=== PATIENT | female | born 1995 | race Caucasian/White ===

== ENCOUNTER 2023-10-27 12:24 | Emergency (ER) | payer OTHER, SELFPAY ==
[2023-10-27 12:30] VITALS: BP 103/82; PULSE 97; RESP 16; TEMP 36.2; O2SAT 100
--- NOTE | 2023-10-27 13:06 | ED.DENTAL ---
HPI - Dental/Oral General Chief complaint: Dental/Oral Stated complaint: tooth pain Time Seen by Provider: 10/27/23 12:44 Source: patient, RN notes reviewed and old records reviewed Mode of arrival: ambulatory Limitations: no limitations History of Present Illness HPI Narrative: 27 year old female who presents to [facility] care with complaints of dental pain to number # 21 and 22 for the past 2 days. Patient reports that she broke a tooth on the left lower molar area on candy she was eating with some redness and swelling of her gums around #21 and 20 teeth. Patient has numerous missing teeth and caries noted of teeth,Patient reports that she has taken Tylenol for her discomfort. Patient reports that she has gone to the [facility] dental clinic in the past for dental problems. MD Complaint: tooth pain Location: Tooth # (21 and #20) Onset (ago): day(s) (2) Severity: moderate Treatment prior to arrival: oral analgesic (Tylenol) Related Data Allergies Allergy/AdvReac Type Severity Reaction Status Date / Time No Known Allergies Allergy Verified 10/27/23 12:33 Review of Systems Review of Systems: CONSTITUTIONAL: Denies fever, chills, or sweats. ENT: Denies rhinorrhea, congestion, sore throat, or otalgia. Reports dental pain to #20 and #21 teeth with # 21 broken off and noted caries to #20 CARDIOVASCULAR: Denies chest pain, palpitations, or edema. RESPIRATORY: Denies cough or dyspnea. SKIN: Denies rash or itching. MUSCULOSKELETAL: Denies myalgia. NEUROLOGIC: Denies headache All systems reviewed & are unremarkable except as noted in HPI and below PMFSH Past Medical History Medical History (Updated 10/29/23 @ 09:06 by Mackenzie Landin NP) History of dental problems Social History Social History (Updated 10/29/23 @ 09:07 by Mackenzie Landin NP) Smoking status: Smoker, status unknown Alcohol intake: unknown Substance use: unknown Gender identity (if verbalized by the patient): Female Comments At time of signature, agree with nursing past medical, surgical, social and family history. There is no relevant family history pertinent to the presenting complaint Exam Narrative: GENERAL: Well-appearing, well-nourished, and in no acute distress. HEAD: Normocephalic, atraumatic. EYES: PERRLA and EOMI. ENT: Nares clear, no rhinorrhea or epistaxis. Mucous membranes moist. Missing teeth, broken teeth, caries, broken #21 tooth with #20 with caries, redness of gums around teeth and pain, no trismus or any Sergio angina noted NECK: Supple no lymphadenopathy CHEST: Clear to auscultation. No respiratory distress.SAO2 100% on room air HEART: Regular rate and rhythm. No murmur heard. Normal peripheral pulses. SKIN: Warm, dry, no rash. NEURO: No focal deficits. Alert and oriented x3. Course Course Emergency Course: Patient is aware of diagnosis, understands and agrees to treatment plan. Anticipatory guidance given. Patient agrees to follow-up as directed and is aware of reasons to seek care at the emergency department. Portions of this record may have been created with voice recognition software Level of Care: Express Care Visit Vital Signs Vital signs: Vital Signs Temperature 36.2 C L 10/27/23 12:30 Pulse Rate 97 10/27/23 12:30 Respiratory Rate 16 10/27/23 12:30 Blood Pressure 103/82 10/27/23 12:30 Pulse Oximetry 100 10/27/23 12:30 Oxygen Delivery Room Air 10/27/23 12:30 Temperature 36.2 C L 10/27/23 12:30 Pulse Rate 97 10/27/23 12:30 Respiratory Rate 16 10/27/23 12:30 Blood Pressure 103/82 10/27/23 12:30 Pulse Oximetry 100 10/27/23 12:30 Oxygen Delivery Room Air 10/27/23 12:30 Reviewed MDM - Dental/Oral MDM Narrative Medical decision making narrative: Patients pain and complaint coupled with physical findings are consistent with dentalgia. There are no focal signs of space occupying lesions that are compromising to the airway; no dysphagia, odynophagia, dysphonia, or dysp
== END 2023-10-27 13:20 | disposition home or self-care (01) ==
PROVIDERS: Emergency Provider Registered Nurse
DX: K04.7 Periapical abscess without sinus (principal); S02.5XXA Fracture of tooth (traumatic), initial encounter for closed fracture; X58.XXXA Exposure to other specified factors, initial encounter
CPT/HCPCS: 99203; G0463

== ENCOUNTER 2024-10-16 14:04 | Emergency (ER) | payer OTHER, SELFPAY ==
[2024-10-16 14:06] VITALS: BP 129/77; PULSE 91; RESP 20; TEMP 36.5; O2SAT 100
--- NOTE | 2024-10-16 14:13 | ED.DENTAL ---
HPI - Dental/Oral General Chief complaint: Dental/Oral Stated complaint: tooth pain and swelling Time Seen by Provider: 10/16/24 14:09 Mode of arrival: ambulatory Limitations: no limitations History of Present Illness HPI Narrative: 28-year-old female presents concern for left lower dental pain. Reports last night she started having pain and swelling. Reports in the past she has a tooth broken in that area. She reports she has had problems with it before. She denies fever. She has been taking ibuprofen. 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 MD Complaint: tooth pain Related Data Allergies Allergy/AdvReac Type Severity Reaction Status Date / Time No Known Allergies Allergy Verified 10/16/24 14:11 Review of Systems Review of Systems: CONSTITUTIONAL: Denies malaise, chills, sweats, or fever. EYES: Denies visual changes ENT: Denies rhinorrhea, congestion, sinus pain, otalgia or sore throat. Reports left lower dental pain and jaw swelling CARDIOVASCULAR: Denies chest pain, palpitations RESPIRATORY: Denies cough or dyspnea. SKIN: Denies rash or itching. MUSCULOSKELETAL: Denies myalgia. NEUROLOGIC: Denies numbness, weakness, or headache. All systems reviewed & are unremarkable except as noted in HPI and below PMFSH Past Medical History Medical History (Updated 10/16/24 @ 14:18 by Cori Mendez NP) History of dental problems Social History Social History (Updated 10/29/23 @ 09:07 by Mackenzie Landin NP) Smoking status: Smoker, status unknown Alcohol intake: unknown Substance use: unknown Gender identity (if verbalized by the patient): Female Comments At time of signature, agree with nursing past medical, surgical, social and family history. There is no relevant family history pertinent to the presenting complaint Exam Narrative: GENERAL: Well-appearing, well-nourished, and in no acute distress. HEAD: Normocephalic, atraumatic. EYES: PERRLA, sclera clear ENT: Nares clear, turbinates pink, no rhinorrhea or epistaxis. Mucous membranes moist. Broken teeth, caries, left lower jaw swelling noted NECK: Supple. No lymphadenopathy. CHEST: No respiratory distress. Speaks in full sentences. HEART: Regular rate and rhythm. SKIN: Warm, dry, no visible rash. NEURO: Alert and oriented x3. PSYCH: Normal mood and affect Course Course Emergency Course: Patient is aware of diagnosis, understands and agrees to treatment plan. Anticipatory guidance given. Patient agrees to follow-up as directed and is aware of reasons to seek care at the emergency department. Portions of this record may have been created with voice recognition software Level of Care: [facility] Visit Vital Signs Vital signs: Vital Signs Temperature 97.7 F 10/16/24 14:06 Pulse Rate 91 10/16/24 14:06 Respiratory Rate 20 10/16/24 14:06 Blood Pressure 129/77 10/16/24 14:06 Pulse Oximetry 100 10/16/24 14:06 Oxygen Delivery Room Air 10/16/24 14:06 Temperature 97.7 F 10/16/24 14:06 Pulse Rate 91 10/16/24 14:06 Respiratory Rate 20 10/16/24 14:06 Blood Pressure 129/77 10/16/24 14:06 Pulse Oximetry 100 10/16/24 14:06 Oxygen Delivery Room Air 10/16/24 14:06 Reviewed. MDM - Dental/Oral MDM Narrative Medical decision making narrative: I evaluated this in the [facility]. History is obtained from patient who is an independent historian and physical exam was performed.? Available medical records were reviewed. ? Exam findings and relevant testing show no acute concerns or changes; patient is non-toxic appearing and is in no distress. Patients pain and complaint coupled with physical findings are consistant with dentalgia. There are no focal signs of space occupying lesions that are compromising to the airway; no dysphagia, odynophagia, dysphonia, or dyspnea. No uvular deviation or soft palate edema. Patient is non-toxic appearing. The floor of the mouth is soft with no signs of Sergio's Angina; no induration below mandible, no neck pain. Patient is without trismus or drooling and able to swallow secretions. Patient is felt appropriate for discharge home with dental follow up. ? Differential diagnosis and treatment plan were discussed with the patient. Patient agrees with discussion and after shared medical decision making agrees with plan of care. All questions were answered to the patient's satisfaction. Patient is appropriate for outpatient treatment and follow-up. Differential Diagnosis Differential diagnosis: Likely gingival abscess, dental caries, toothache, dental abscess, fracture of tooth and aphthous ulcer Critical Care Time Critical Care Time Critical Care Time: No Discharge Plan Discharge Clinical Impression: Dental abscess Patient Disposition: Home Condition: Stable Instructions: Antibiotic Form, Dental Abscess (ED) Additional Instructions: Take antibiotic as directed Avoid temperature extremes May apply heat or ice to the face Gentle brushing and flossing Take 2 extra strength Tylenol, 4 ibuprofen, 80 mg of caffeine at same time. You can do this every 6 hours. Do not do this for more than 2 - 3 days. You can substitute 25 mg Benadryl at nighttime for caffeine to help you sleep. Do this for no more than 3 days. Follow-up with the dentist as soon as possible - see the list provided Patient Language: Bulgarian Prescriptions: New amoxicillin-pot clavulanate 875-125 mg tablet 1 tablet PO Q12H 10 Days Qty: 20 0RF chlorhexidine gluconate 0.12 % mouthwash 15 ml buccal BID Qty: 120 0RF Follow-up/Referrals: PHYSICIAN,CAN RUNNER [Primary Care Provider] - Time of Disposition: 14:19
--- OUTSIDE RECORDS SUMMARY | 2024-10-16 14:17 | XMS_ITS | Referral Summary ---
Author Organization [facility] Address [address] [place] [address] Care Team Providers Care Natural Resource Manager Name Role Phone No, Physician Primary Care Provider [phone] Allergies Active Allergy Reactions Criticality Noted Date Comments Cinnamon Swelling Medium 11/15/2017 Medications ibuprofen (ADVIL,MOTRIN) 600 mg tablet Take 1 tablet (600 mg total) by mouth 4 (four) times a day as needed for pain Take with food. 30 tablet 1 Active ibuprofen (ADVIL,MOTRIN) 600 mg tablet Take 1 tablet (600 mg total) by mouth every 6 (six) hours as needed for pain 20 tablet 2 Active chlorhexidine (PERIDEX) 0.12 % solution Apply 10 mL to the mouth or throat 4 (four) times a day Swish around in mouth and hold in mouth for 5-10 minutes then spit out. Collaborating physician Dheeraj Cruz MD 240 mL 1 2 Active ibuprofen (ADVIL,MOTRIN) 600 mg tablet Take 1 tablet (600 mg total) by mouth every 8 (eight) hours as needed for pain P.r.n. pain and/or swelling. Collaborating physician Dheeraj Cruz MD 20 tablet 2 Active phenylephrine (SAIDA-SYNEPHRIN E) 0.25 % nasal sprayIndicatio ns:Nasal sinus congestion Administer 1 spray into each nostril every 4 (four) hours as needed for congestion Collaborating physician Dheeraj Cruz MD 15 mL 3 Active naproxen (NAPROSYN) 375 mg tablet Take 1 tablet (375 mg total) by mouth 2 (two) times a day with meals Collaborating physician Dheeraj Cruz MD 20 tablet 3 Active Active Problems Problem Noted Date Diagnosed Date Acute right otitis media 09/17/2022 Nasal sinus congestion 09/17/2022 Gingivitis 10/27/2021 Dentalgia 10/27/2021 Dental caries 10/27/2021 Glucosuria with normal serum glucose 10/23/2019 Benzodiazepine overdose 10/23/2019 depression 07/01/2017 Scabies 06/24/2017 Hypoglycemia Social History Tobacco Use Types Packs/Day Years Used Date Smoking Tobacco: Every Day Cigarettes Smokeless Tobacco: Never Alcohol Use Standard Drinks/Week Comments Yes 0 (1 standard drink = 0.6 oz pur e alcohol) occasionally Personal Safety Answer Date Recorded Getting School Help Needed Not on file 09/24 Comments No Sex and Gender Information Value Date Recorded Sex Assigned at Not on file 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 Gender Identity Not on file Sexual Orientation Not on file Last Filed Vital Signs Vital Sign Reading Time Taken Comments Blood Pressure 130/69 09/17/2022 5:10 PM CDT Pulse 89 09/17/2022 5:10 PM CDT Temperature 36.8 C (98.2 F) 09/17/2022 5:10 PM CDT Respiratory Rate 20 09/17/2022 5:10 PM CDT Oxygen Saturation 100% 09/17/2022 5:10 PM CDT Inhaled Oxygen Concentration - - Weight 63.5 kg (140 lb) 09/17/2022 3:10 PM CDT Height 162.6 cm (5' 4) 08/24/2022 4:44 PM CDT Body Mass Index 24.03 08/24/2022 4:44 PM CDT Plan of Treatment Not on file Insurance MEDICAID [facility] MEDICAID [facility] Advance Directives For more information, please contact: [phone] * Full Code (Latest Code Status on File) Date Activated Date Inactivated Comments 10/22/2019 5:45 AM 10/23/2019 9:20 PM Care Teams Natural Resource Manager Relationship Specialty Start Date End Date No, Physician PCP - General 08/20/16
--- OUTSIDE RECORDS SUMMARY | 2024-10-16 14:17 | XMS_ITS | Clinical Summary ---
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 Gender Identity Not on file Sexual Orientation Not on file Obstetrics History Last Filed Vital Signs Vital Sign Reading [...] 08/24/2022 4:44 PM CDT Plan of Treatment Health Maintenance Due Date Last Done Comments Cervical Cancer Screening 1994 Depression Screening 1994 Hepatitis C Screening 1994 Varicella Vaccines (1 of 2 - 13+ 2-dose series) 12/12/2007 HPV Vaccines (2 - 3-dose series) 01/27/2011 12/31/19 11 Regular Well Visit/Exam 18-64 2012 Pneumococcal vaccine <65 (1 of 2 - PCV) 2013 DTaP/Tdap/Td Vaccine (7 - Td or Tdap) 04/30/2024 04/30/2014, 12/30/2010, 10/22/2006, Additional history exists Influenza Vaccine (#1) 2024 Hepatitis B Screening Completed 11/13/1998 , 05/12/1995, 1994 Insurance [facility] MEDICAID [facility] [place] [address] Advance Directives For more information, please contact: [phone] * Full Code (Latest Code Status on File) Date Activated Date Inactivated Comments 10/22/2019 5:45 AM 10/23/2019 9:20 PM Care Teams Mold Sheet Cleaner Relationship Specialty Start Date End Date No, Physician PCP - General 08/20/16
--- OUTSIDE RECORDS SUMMARY | 2024-10-16 14:17 | XMS_ITS | Clinical Summary ---
Author Organization [facility] Address [address] [place] [address] Phone Care Team Providers Care Donor Relations Coordinator Name Role Phone Provider, None Primary Care Provider Unavailabl e Allergies Active Allergy Reactions Criticality Noted Date Comments Cinnamon Swelling 02/18/2023 Medications * This document contains information received from the source organization and may not represent a complete record from that organization. metoclopramide (REGLAN) 10 MG Tablet Take 1 Tab by mouth 4 times daily as needed for Nausea - 1st line. 10 Tab 0 Active polyethylene glycol (MiraLax) 17 GM/SCOOP Powder Take 17 g by mouth daily. 17 g = 1 scoop. Dissolve in 4 -8 oz of water or other liquid. 1 Bottle 0 Active folic acid (FOLVITE) 1 MG Tablet Take 1 Tablet by mouth daily. 30 Tablet 3 Active hydrOXYzine (ATARAX) 50 MG Tablet Take 1 Tablet by mouth every 6 hours as needed for Anxiety (For mild anxiety - patient reported scale of 1-4.). 90 Tablet 3 Active loperamide (IMODIUM) 2 MG Capsule Take 1 Capsule by mouth every 8 hours as needed for Diarrhea (give for continued diarrhea). 30 Capsule 3 Active nicotine (NICODERM CQ) 21 MG/24HR PATCH 24 HR 1 Patch by Transdermal route daily as needed for Other (smoking). 30 Patch 3 Active ondansetron (ZOFRAN-ODT) 4 MG TABLET DISPERSIBLE Take 1 Tablet by mouth every 6 hours as needed for Nausea - 1st line. 10 Tablet 3 Active senna 8.6 MG Tablet Take 2 Tablets by mouth nightly as needed for Constipation - 1st line. 30 Tablet 3 Active Thiamine Mononitrate (THIAMINE) 100 MG Tablet Take 1 Tablet by mouth daily. 30 Tablet 3 Active naloxone HCl (Narcan) 4 MG/0.1ML Liquid 1 Eagar by Nasal route as needed for Opioid Reversal (opioid overdose). administer for symptoms of overdose (severe sleepiness, breathing problems, not responsive). Call 911. May use additional dose to repeat 1 spray intranasally in 2-3 minutes if needed. 2 Each 3 Active buprenorphine 2 MG SL TabletIndicatio ns:Opiate withdrawal (HCC) 1 Tablet by Sublingual route every 12 hours as needed for Withdrawal for up to 5 doses. 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 Tobacco dependence 02/18/2023 Family History Medical History Relation Name Comments No Known Problems Father No Known Problems Mother Relation Name Status Comments Father Mother Social History Tobacco Use Types Packs/Day Years Used Date Smoking Tobacco: Every Day Cigarettes 0.5 10 Smokeless Tobacco: Never Tobacco Cessation:Ready to Q uit: No Alcohol Use Standard Drinks/Week Comments No 0 (1 standard drink = 0.6 oz pur e alcohol) Sexually Active Control Partners Comments Yes Male Comments No Sex and Gender Information Value Date Recorded Sex Assigned at Not on file Legal Sex Female 12:07 AM CDT Gender Identity Not on file Sexual Orientation Not on file Last Filed Vital Signs Vital Sign Reading Time Taken Comments Blood Pressure 107/52 02/21/2023 8:00 AM UNSCRAMBLER Pulse 64 02/21/2023 8:00 AM UNSCRAMBLER Temperature 36.2 C (97.2 F) 02/21/2023 8:00 AM UNSCRAMBLER Respiratory Rate 18 02/21/2023 8:00 AM UNSCRAMBLER Oxygen Saturation 97% 02/21/2023 8:00 AM UNSCRAMBLER Inhaled Oxygen Concentration - - Weight 63.5 kg (140 lb) 02/18/2023 3:56 PM UNSCRAMBLER Height 162.6 cm (5' 4) 02/18/2023 3:58 PM UNSCRAMBLER Body Mass Index 24.03 02/18/2023 3:56 PM UNSCRAMBLER Plan of Treatment Health Maintenance Due Date Last Done Comments Hepatitis C Virus (HCV) Screening 1994 Human Papillomavirus (HPV) Immunization (2 - 3-dose series) 01/27/2011 12/30/2010 Pneumococcal Immunization Combined (1 of 2 - PCV) 2013 Pap Smear 12/12/2015 SARS-COV-2 Immunization ( season) 2023 Influenza Immunization (#1) 2024 Respiratory Syncytial Virus (RSV) Immunization (Adult) (1 - 1-dose 75+ series) 2069 Hepatitis B Immunization Completed 999, 05/12/1995, 1994 Meningococcal Immunization (ACWY) Completed 12/30/2010, 10/22/2006 DTaP/Tdap/Td Immunization Discontinued 2014, 12/30/2010, 10/22/2006, Additional history exists TdaP Immunization Completed 04/30/2014, 12/30/2010 Rotavirus Immunization Aged Out No lo nger eligible based on patient's age to complete this topic Insurance MEDICAID [facility] Advance Directives * Full Code (Latest Code Status on File) Date Activated Date Inactivated Comments 02/18/2023 3:47 PM 02/21/2023 5:09 PM CPR-Full Tr eatment: FULL ARREST: Attempt Resuscitation/CPR wit intubation and mechanical ventilation. PRE-ARREST: Use entire range of life support measures to stabilize the patient. * Full Code Date Activated Date Inactivated Comments 11/24/2016 6:45 AM 11/25/2016 11:00 PM CPR-Full Tr eatment: FULL ARREST: Attempt Resuscitation/CPR wit intubation and mechanical ventilation. PRE-ARREST: Use entire range of life support measures to stabilize the patient. Care Teams Donor Relations Coordinator Relationship Specialty Start Date End Date Provider, None [place] PCP - General 07/13/16
== END 2024-10-16 14:22 | disposition home or self-care (01) ==
PROVIDERS: Emergency Provider Nurse Practitioner
DX: K04.7 Periapical abscess without sinus (principal)
CPT/HCPCS: 99213; G0463

== ENCOUNTER 2025-02-20 19:00 | Emergency (ER) | payer OTHER, SELFPAY ==
[2025-02-20 19:08] VITALS: BP 115/71; PULSE 108; RESP 20; TEMP 36.7; O2SAT 100
--- NOTE | 2025-02-20 19:16 | ED.FEMALEGU ---
HPI - Female Genitourinary General Chief complaint: Urogenital-Female Stated complaint: Poss UTI Time Seen by Provider: 02/20/25 19:36 Source: patient and RN notes reviewed Mode of arrival: ambulatory Limitations: no limitations History of Present Illness HPI Narrative: 29-year-old female presents with concern for foul vaginal odor for 2 weeks. She denies discharge, frequency, urgency, abdominal pain, fever, nausea vomiting, back pain. She reports someone in her town has chlamydia and she is worried she was exposed. MD elicited complaint: possible STD Related Data Allergies Allergy/AdvReac Type Severity Reaction Status Date / Time No Known Allergies Allergy Verified 02/20/25 19:18 Review of Systems Review of Systems: CONSTITUTIONAL: Denies malaise, chills, sweats, or fever. CARDIOVASCULAR: Denies chest pain, palpitations, or edema. RESPIRATORY: Denies cough or dyspnea. GASTROINTESTINAL: Denies abdominal pain, nausea, vomiting, diarrhea GENITOURINARY: Reports foul vaginal odor. Denies dysuria, frequency, urgency, suprapubic pressure. Denies flank pain or hematuria. SKIN: Denies rash or itching. MUSCULOSKELETAL: Denies back pain or myalgia. All systems reviewed & are unremarkable except as noted in HPI and below PMFSH Past Medical History Medical History (Updated 02/20/25 @ 19:43 by Cori Mendez APRN) History of dental problems Social History Social History (Updated 10/29/23 @ 09:07 by Mackenzie Landin APRN) Smoking status: Smoker, status unknown Alcohol intake: unknown Substance use: unknown Gender identity (if verbalized by the patient): Female Comments At time of signature, agree with nursing past medical, surgical, social and family history. There is no relevant family history pertinent to the presenting complaint Exam Narrative: GENERAL: Well-appearing, well-nourished, and in no acute distress. HEAD: Normocephalic. EYES: PERRLA, conjunctivae clear. NECK: Supple. No lymphadenopathy CHEST: Clear to auscultation. No respiratory distress. HEART: Regular rate and rhythm. ABDOMEN: Soft, nontender upon palpation, nondistended, no palpable or pulsatile masses, no guarding. No CVA tenderness SKIN: Warm, dry, no rash. NEURO: Alert and oriented x3. PSYCH: Normal mood and affect Course Course Emergency Course: Patient is aware of diagnosis, understands and agrees to treatment plan. Anticipatory guidance given. Patient agrees to follow-up as directed and is aware of reasons to seek care at the emergency department. Portions of this record may have been created with voice recognition software Level of Care: [facility] Visit MDM Differential Diagnosis Differential Diagnosis: I evaluated this patient in the [facility]. History is obtained from patient who is an independent historian and physical exam was performed.? Available medical records were reviewed. ? Exam findings and relevant testing show no acute concerns or changes; patient is non-toxic appearing and is in no distress. ? Exam findings and UA show no acute concerns or changes; patient is non-toxic appearing and is in no distress. No CMT, adnexal tenderness, or evidence of pelvic etiology. Differential diagnosis include pyelonephritis, STI, cystitis, urinary tract infection, acute abdomen, gastroenteritis, yeast infection Differential diagnosis and treatment plan were discussed with the patient. Patient agrees with discussion and after shared medical decision making agrees with plan of care. All questions were answered to the patient's satisfaction. Patient is appropriate for outpatient treatment and follow-up. Discharge Plan Discharge Clinical Impression: Screen for STD (sexually transmitted disease) Patient Disposition: Home Condition: Stable Instructions: Antibiotic Form, Sexually Transmitted Diseases (ED) Additional Instructions: You have been tested for potential bacterial vaginosis gonorrhea, chlamydia, and trichomoniasis today. You have received antibiotics to treat gonorrhea today, a prescription has been called into your pharmacy to treat chlamydia, bacterial vaginosis, and trichomoniasis. You will receive a phone call in 2-3 days with the results of today's testing. It is very important that you avoid unprotected intercourse during treatment and for 7 days AFTER TREATMENT is complete and until your partner(s) have been treated. Please encourage your partner(s) to seek testing and treatment. When you have been exposed to sexually transmitted infections, it is important that you seek comprehensive testing, since we do not provide testing for all sexually transmitted infections. Some infections can have no symptoms, but cause serious health problems. Contact your health care provider or report to the emergency department if: You have genital swelling or pain, or unusual bleeding. You have joint pain, rash, swollen lymph nodes or night sweats. You are severe abdominal pain. You have a fever. Symptoms do not go away or they get worse even after treatment. You have bleeding or pain during sex. Patient Language: Syrian Prescriptions: New metronidazole 500 mg tablet 500 mg PO BID 7 Days Qty: 14 0RF doxycycline monohydrate 100 mg tablet 100 mg PO BID 7 Days Qty: 14 0RF Follow-up/Referrals: PHYSICIAN,ANIMAL CARE TAKER [Primary Care Provider, Internal Medicine] Time of Disposition: 19:45
--- OUTSIDE RECORDS SUMMARY | 2025-02-20 19:17 | XMS_ITS | Clinical Summary ---
Author Organization [facility] Address [address] [place] [address] Phone Care Team Providers Care Chemistry Lab Instructor Name Role Phone Provider, None Primary Care [...] naloxone HCl (Narcan) 4 MG/0.1ML Liquid 1 [place] by Nasal route as needed for Opioid Reversal (opioid overdose). administer for symptoms of overdose (severe sleepiness, breathing problems, not responsive). Call 911. May use additional dose to repeat 1 spray intranasally in 2-3 minutes if needed. 2 Each 3 Active buprenorphine 2 MG SL TabletIndicatio ns:Opiate withdrawal 1 Tablet by Sublingual route every 12 [...] Comments Blood Pressure 107/52 02/21/2023 8:00 AM OUTBOUND SALES ADVISOR Pulse 64 02/21/2023 8:00 AM OUTBOUND SALES ADVISOR Temperature 36.2 C (97.2 F) 02/21/2023 8:00 AM OUTBOUND SALES ADVISOR Respiratory Rate 18 02/21/2023 8:00 AM OUTBOUND SALES ADVISOR Oxygen Saturation 97% 02/21/2023 8:00 AM OUTBOUND SALES ADVISOR Inhaled Oxygen Concentration - - Weight 63.5 kg (140 lb) 02/18/2023 3:56 PM OUTBOUND SALES ADVISOR Height 162.6 cm (5' 4) 02/18/2023 3:58 PM OUTBOUND SALES ADVISOR Body Mass Index 24.03 02/18/2023 3:56 PM OUTBOUND SALES ADVISOR Plan of Treatment Health Maintenance Due Date Last Done Comments Hepatitis C Virus (HCV) Screening 1994 Varicella Immunization (1 of 2 - 13+ 2-dose series) 12/12/2007 Human Papillomavirus (HPV) Immunization (2 - 3-dose series) 01/27/2011 12/30/2010 Pneumococcal Immunization Combined (1 of 2 - PCV) 2013 Pap Smear 12/12/2015 Influenza Immunization (#1) 2024 SARS-COV-2 Immunization (1 - season) 2024 Cervical Cancer Screening (CCS) 2024 HPV/Cotest 2024 Respiratory Syncytial Virus (RSV) Immunization (Adult) [...] measures to stabilize the patient. Care Teams Chemistry Lab Instructor Relationship Specialty Start Date End Date Provider, None [place] PCP - General 07/13/16
--- OUTSIDE RECORDS SUMMARY | 2025-02-20 19:17 | XMS_ITS | Clinical Summary ---
Author Organization [facility] Address [address] [place] [address] Care Team Providers Care Organ Tuner Electronic Name Role Phone No, Physician Primary Care Provider [phone] Allergies Active Allergy Reactions Criticality Noted Date Comments Cinnamon Swelling Medium 11/15/2017 Medications ibuprofen (ADVIL,MOTRIN) 600 mg tablet Take 1 tablet (600 mg total) by mouth 4 (four) times a day as needed for pain Take with food. 30 tablet 05/27/19 21 Active ibuprofen (ADVIL,MOTRIN) 600 mg tablet Take 1 tablet (600 mg total) by mouth every 6 (six) hours as needed for pain 20 tablet 07/02/19 22 Active chlorhexidine (PERIDEX) 0.12 % solution Apply 10 mL to the mouth or throat 4 (four) times a day Swish around in mouth and hold in mouth for 5-10 minutes then spit out. Collaborating physician Dheeraj Cruz MD 240 mL 1 10/28/19 22 Active ibuprofen (ADVIL,MOTRIN) 600 mg tablet Take 1 tablet (600 mg total) by mouth every 8 (eight) hours as needed for pain P.r.n. pain and/or swelling. Collaborating physician Dheeraj Cruz MD 20 tablet 10/28/19 22 Active phenylephrine (SAIDA-SYNEPHRINE) 0.25 % nasal sprayIndications:N zaheer sinus congestion Administer 1 spray into each nostril every 4 (four) hours as needed for congestion Collaborating physician Dheeraj Cruz MD 15 mL 09/18/19 23 Active naproxen (NAPROSYN) 375 mg tablet Take 1 tablet (375 mg total) by mouth 2 (two) times a day with meals Collaborating physician Dheeraj Cruz MD 20 tablet 09/18/19 23 Active ondansetron ODT (ZOFRAN-ODT) 4 mg disintegrating tablet Take 1 tablet (4 mg total) by mouth every 8 (eight) hours as needed for nausea 20 tablet 11/28/19 25 Active Active Problems Problem Noted Date Diagnosed Date Acute right otitis media 09/17/2022 Nasal sinus congestion 09/17/2022 Gingivitis 10/27/2021 Dentalgia 10/27/2021 Dental caries 10/27/2021 Glucosuria with normal serum glucose 10/23/2019 Benzodiazepine overdose 10/23/2019 depression 07/01/2017 Scabies 06/24/2017 Hypoglycemia Encounters Date Type Department Care Team Description 01/12/2025 [facility] Initial Eligibility [facility] Warm Hand Off [facility] [address] [place], [place] [phone] Tara Oliveros 11/27/2024 2:51 PM CDT - 11/27/2024 3:03 PM CDT Emergency [facility] Emergency Department [address] [place] [address] Abdominal pain (Primary Dx); Diarrhea, unspecified type Discharge Disposition: Discharge to home or self care from Last 3 Months Surgical History Surgery Date Site/Laterality Comments APPENDECTOMY Medical History Medical History Date Comments Non-suicidal self harm Cutting h erself Social History Tobacco Use Types Packs/Day Years Used Date Smoking Tobacco: Every Day Cigarettes Smokeless Tobacco: Never Alcohol Use Standard Drinks/Week Comments Yes 0 (1 standard drink = 0.6 oz pur e alcohol) occasionally Personal Safety Answer Date Recorded Have you ever been in or are you currently in a harmful physical or emotional relationship or is someone making you feel afraid or unsafe? 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 Gender Identity Female 01/12/2025 2:38 PM CDT Sexual Orientation Not on file Last Filed Vital Signs Vital Sign Reading Time Taken Comments Blood Pressure 129/87 11/27/2024 3:00 PM CDT Pulse 84 11/27/2024 3:00 PM CDT Temperature 36.6 C (97.9 F) 11/27/2024 1:44 PM CDT Respiratory Rate 15 11/27/2024 3:00 PM CDT Oxygen Saturation 96% 11/27/2024 3:00 PM CDT Inhaled Oxygen Concentration - - [...] B Screening Completed 11/13/1998 , 05/12/1995, 1994 Procedures Procedure Name Priority Date/Time Associated Diagnosis Comments CT ABDOMEN PELVIS WO CONTRAST ED 11/27/2024 2:19 PM CDT URINALYSIS AND REFLEX TO MICROSCOPIC AND CULTURE STAT 11/27/2024 11:47 AM CDT EGFR STAT 11/27/2024 11:16 AM CDT DIFFERENTIAL AUTO STAT 11/27/2024 11: 16 AM CDT HCG, BLOOD, QUANTITATIVE STAT 11/27/2024 11:16 AM CDT MAGNESIUM STAT 11/27/2024 11:16 AM CDT COMPREHENSIVE METABOLIC PANEL STAT 11/27/2024 11:16 AM CDT CBC WITH AUTO DIFFERENTIAL STAT 11/27/2024 11:16 AM CDT from Last 3 Months Results * CT Abdomen Pelvis WO Contrast (11/27/2024 2:19 PM CDT) Anatomical Region Laterality Modality Body N/A Computed Tomogra phy 11/27/2024 2:35 PM CDT Narrative 11/27/2024 2:42 PM CDT EXAM DESCRIPTION: CT ABDOMEN PELVIS WO CONTRAST REASON FOR STUDY: Abdominal pain, acute, nonlocalized RUQ pain, nausea, and vomiting for 3 days. Hx of appendectomy. TECHNIQUE: CT scan of the abdomen and pelvis performed without intravenous and without oral contrast using helical scanning technique. Reconstructed coronal and sagittal MPR images reviewed. All images stored on PACS. Automated exposure control was used as a dose optimization technique for this examination. COMPARISON: None FINDINGS: The sensitivity for detection of visceral lesions is diminished without the use of intravenous contrast. LOWER CHEST: No significant pulmonary abnormalities. No effusion. LIVER: Normal size. No identified cystic or solid masses. GALLBLADDER: No stones identified. No wall thickening or inflammatory changes. BILE DUCTS: No intrahepatic or extrahepatic ductal dilatation. SPLEEN: Normal size. No focal lesions. PANCREAS: No identified cystic or solid masses. No significant calcifications. No adjacent inflammation or peripancreatic fluid collections. Pancreatic duct not dilated. ADRENALS: Normal. KIDNEYS/URINARY TRACT: No identified significant cystic or solid masses. No stones. No hydronephrosis or hydroureter. Urinary bladder is unremarkable. GI: No dilated bowel loops. No obvious wall thickening. Status post appendectomy. No significant diverticular disease. There is liquid stool in the colon representing diarrheal state. The stomach is ecxxpsyd-id-zidcpbfy distended with ingested contents. Correlate with timing of last meal to evaluate for possible delayed gastric emptying. PERITONEUM: No ascites or free air. RETROPERITONEUM: No mass or adenopathy. REPRODUCTIVE: No significant abnormality. Left ovarian cyst measures 4.7 cm. VASCULATURE: No abdominal aortic aneurysm. MUSCULOSKELETAL: No significant abnormality. OTHER: No other abnormality. IMPRESSION: 1. The stomach is lrnreugq-xr-eewrrpfd distended with ingested contents. Correlate with timing of last meal to evaluate for possible delayed gastric emptying. 2. Liquid stool in the colon representing diarrheal state. THIS IS AN ELECTRONICALLY VERIFIED FINAL REPORT 11/27/2024 2:42 PM - Electronically signed by Ab Vega M.D. MM: MM Report ID: [id number] Reading Location: [id number] Procedure Note Ab Vega MD - 11/27/2024 EXAM DESCRIPTION: CT ABDOMEN PELVIS WO CONTRAST REASON FOR STUDY: Abdominal pain, acute, nonlocalized RUQ pain, nausea, and vomiting for 3 days. Hx of appendectomy. TECHNIQUE: CT scan of the abdomen and pelvis performed without intravenousand without oral contrast using helical scanning technique. Reconstructed coronal and sagittal MPR images reviewed. All images stored on PACS.Automated exposure control was used as a dose optimization technique for this examination. COMPARISON: None FINDINGS: The sensitivity for detection of visceral lesions is diminished withoutthe use of intravenous contrast. LOWER CHEST: No significant pulmonary abnormalities. No effusion. LIVER: Normal size. No identified cystic or solid masses. GALLBLADDER: No stones identified. No wall thickening or inflammatory changes. BILE DUCTS: No intrahepatic or extrahepatic ductal dilatation. SPLEEN: Normal size. No focal lesions. PANCREAS: No identified cystic or solid masses. No significant calcifications. No adjacent inflammation or peripancreatic fluidcollections. Pancreatic duct not dilated. ADRENALS: Normal. KIDNEYS/URINARY TRACT: No identified significant cystic or solid masses.No stones. No hydronephrosis or hydroureter. Urinary bladder isunremarkable. GI: No dilated bowel loops. No obvious wall thickening. Status post appendectomy. No significant diverticular disease. There is liquidstool in the colon representing diarrheal state. The stomach rjrkzohuud-tg-tvrbbdbb distended with ingested contents. Correlate with timing of last meal to evaluate for possible delayed gastric emptying. PERITONEUM: No ascites or free air. RETROPERITONEUM: No mass or adenopathy. REPRODUCTIVE: No significant abnormality. Left ovarian cyst measures4.7 cm. VASCULATURE: No abdominal aortic aneurysm. MUSCULOSKELETAL: No significant abnormality. OTHER: No other abnormality. IMPRESSION: 1. The stomach is qanaloix-br-jrsnrqdi distended with ingested contents. Correlate with timing of last meal to evaluate for possible delayedgastric emptying. 2. Liquid stool in the colon representing diarrheal state. THIS IS AN ELECTRONICALLY VERIFIED FINAL REPORT 11/27/2024 2:42 PM - Electronically signed by Ab Vega M.D. MM: MM Report ID: [id number] Reading Location: [id number] Annel ZIMMER IMG CT PROCEDURES Final Result * Urinalysis reflex to microscopic and culture Urine (11/27/2024 11:47 AM CDT) Color, ur Yellow Yellow Clarity, ur Clear Clear [facility] ([place]) Specific gravity, ur 1.029 1.003 - 1.030 [facility] ([place]) pH, urine 5.0 [facility] ([place]) Comment: Interpretive Data U rine pH is affected by diet, medications, systemic acid-base disturbances, and renal tubular function. pH may affect urinary stone formation. For example, urine pH below 6.0 may help reduce the tendency for calcium phosphate stones and pH greater than 6.0 may reduce the tendency for uric acid stone formation. Source: [facility] Current Interpretive Data was last revised on 2017 Protein, ur ql Trace Negative [facility] ([place]) Glucose, ur ql Negative Negative [facility] ([place]) Ketones, ur Negative Negative [facility] ([place]) Bilirubin, ur Negative Negative [facility] ([place]) Blood, ur Negative Negative [facility] ([place]) Urobilinogen, ur <2.0 <2.0 mg/dL [facility] ([place]) Nitrite, ur Negative Negative [facility] ([place]) Leukocyte esterase, ur Negative Negative [facility] ([place]) UA reflex comment Reflex conditions for microscopic UA and culture not met. [facility] ([place]) Urine 11/27/2024 11:4 7 AM CDT 11/27/2024 11:56 AM CDT Annel [facility] LAB MICROBIOLOGY - GENERAL SHORTY FLOOD Final Result [facility] ([place]) [address] [facility] Department [place] [address] * eGFR (11/27/2024 11:16 AM CDT) eGFR >90 >=60 mL/min/1. 73 m2 Comment: Interpretive Data Reference Interval Normal >/= 90 mL/min/1.73m2 Mildly decreased* 60 - 89 mL/min/1.73m2 Mildly to moderately decreased 45 - 59 mL/min/1.73m2 Moderately to severely decreased 30 - 44 mL/min/1.73m2 Severely decreased 15 - 29 mL/min/1.73m2 Kidney Failure < 15 mL/min/1.73m2 *Relative to young adult level Estimated glomerular filtration rate is determined by the 2020 CKD-EPI equation recommended by the National Kidney Foundation (A Unifying Approach to GFR Estimation: Recommendations of the NKF-ASK Task Force on Reassessing the Inclusion of Race in Diagnosing Kidney Disease, JASN 2020). The CKD-EPI equation should not be used for patients with unstable renal function and has not been validated in children and those over 70. Current interpretive data was last reviewed 2021. Blood 11/27/2024 11:1 6 AM CDT 11/27/2024 11:22 AM CDT us Annel [facility] LAB BLOOD ORDERABLES Final Resu lt [facility] ([place] [address] [facility] Department [place] [address] * Differential, auto (11/27/2024 11:16 AM CDT) Neutrophil abs 3.99 1.50 - 6.50 K/cumm Imm gran abs 0.03 0.00 - 0.10 K/cumm [facility] ([place]) Lymphocyte abs 2.56 0.80 - 3.30 K/cumm [facility] ([place]) Monocyte abs 0.36 0.20 - 0.80 K/cumm [facility] ([place]) Eosinophil abs 0.13 0.00 - 0.50 K/cumm [facility] ([place]) Basophil abs 0.05 0.00 - 0.10 K/cumm [facility] ([place]) Neutrophil pct 56.0 % [facility] ([place]) Comment: Interpretive Data Percent cell count reference ranges are not reported, since discordance with absolute values may lead to misinterpretation of CBC data. Current Interpretive Data was last revised on 2017. Imm gran pct 0.4 % [facility] ([place]) Comment: Interpretive Data Percent cell count reference ranges are not reported, since discordance with absolute values may lead to misinterpretation of CBC data. Current Interpretive Data was last revised on 2017. Lymphocyte pct 36.0 % [facility] ([place]) Comment: Interpretive Data Percent cell count reference ranges are not reported, since discordance with absolute values may lead to misinterpretation of CBC data. Current Interpretive Data was last revised on 2017. Monocyte pct 5.1 % [facility] ([place]) Comment: Interpretive Data Percent cell count reference ranges are not reported, since discordance with absolute values may lead to misinterpretation of CBC data. Current Interpretive Data was last revised on 2017. Eosinophil pct 1.8 % [facility] ([place]) Comment: Interpretive Data Percent cell count reference ranges are not reported, since discordance with absolute values may lead to misinterpretation of CBC data. Current Interpretive Data was last revised on 2017. Basophil pct 0.7 % [facility] ([place]) Comment: Interpretive Data Percent cell count reference ranges are not reported, since discordance with absolute values may lead to misinterpretation of CBC data. Current Interpretive Data was last revised on 2017. Blood 11/27/2024 11:1 6 AM CDT 11/27/2024 11:22 AM CDT us Annel [facility] LAB BLOOD ORDERABLES Final Resu lt [facility] ([place]) [address] [facility] [place] [address] * CBC with auto differential (11/27/2024 11:16 AM CDT) WBC 7.12 3.80 - 9.90 K/cumm Hgb 13.6 11.9 - 15.5 g/dL [facility] ([place]) Hct 41.0 35.6 - 45.5 % [facility] ([place]) Plt 159 150 - 400 K/cumm [facility] ([place]) MPV 10.8 9.1 - 12.3 fL [facility] ([place]) RBC 4.59 3.90 - 5.20 M/cumm [facility] ([place]) MCV 89.3 81.3 - 96.4 fL [facility] ([place]) MCH 29.6 27.1 - 33.3 pg [facility] ([place]) MCHC 33.2 32.3 - 35.7 g/dL [facility] ([place]) RDW CV 12.2 11.1 - 14.9 % [facility] ([place]) RDW SD 39.8 35.7 - 48.1 fL [facility] ([place]) NRBC abs 0.00 0.00 - 0.01 K/cumm [facility] ([place]) Morphologic Screen Results confirmed by manual morphology review. [facility] ([place]) Blood 11/27/2024 11:1 6 AM CDT 11/27/2024 11:22 AM CDT us Annel [facility] LAB BLOOD ORDERABLES Final Resu lt [facility] ([place]) [address] [facility] [place] [address] * hCG, blood, quantitative (11/27/2024 11:16 AM CDT) hCG, quant <5.0 0.0 - 5.0 IUnits/L [facility] ([place]) Comment: Interpretive Data Male: < 5 IU/L Non- premenopausal Female: <5 IU/L The Anabella hCG Beta Quant assay procedure was used. Results from different manufacturers or methods may not be comparable. Serial testing should be performed using the same method. Interpretive Data was last revised on 2023 Blood 11/27/2024 11:1 6 AM CDT 11/27/2024 11:22 AM CDT Annel [facility] LAB BLOOD ORDERABLES Final Resu lt [facility] ([place]) [address] [facility] [place] [place] [address] * Magnesium (11/27/2024 11:16 AM CDT) Pathologist [facility] Magnesium 2.2 1.4 - 2.5 mg/dL [facility] ([place]) Blood 11/27/2024 11:1 6 AM CDT 11/27/2024 11:22 AM CDT Annel [place] LAB BLOOD ORDERABLES Final Resu lt Performing Organization Address [facility] [place] Co de Phone Number [facility] ([place]) 1 [facility] [place] [address] * (ABNORMAL) Comprehensive metabolic panel (11/27/2024 11:16 AM CDT) Sodium 134(L) 135 - 145 mmol/L [facility] ([place]) Potassium, pl 4.5 3.3 - 4.9 mmol/L [facility] ([place]) Chloride 102 97 - 110 mmol/L [facility] ([place]) CO2 21(L) 22 - 32 mmol/L [facility] ([place]) Anion gap 11 2 - 15 mmol/L [facility] ([place]) BUN 4(L) 6 - 25 mg/dL [facility] ([place]) Creatinine 0.58(L) 0.60 - 1.10 mg/dL [facility] ([place]) Glucose 98 70 - 199 mg/dL [facility] ([place]) Comment: Interpretive Data Fasting glucose >/= 126 mg/dl is diagnostic for diabetes. Fasting is defined as no caloric intake for at least 8 hours. Fasting glucose between 100 mg/dl to 125 mg/dl is diagnostic of prediabetes. In a patient with classic symptoms of hyperglycemia or hyperglycemic crisis, a random glucose >/= 200 mg/dl is diagnostic for diabetes. In the absence of unequivocal hyperglycemia, results should be confirmed by repeat testing. The classification and Diagnosis of Diabetes Diabetes Care 202; 46: S19-S40. Current interpretive data was last revised 2022. Calcium 9.3 8.5 - 10.3 mg/dL [facility] ([place]) Bilirubin, total 0.2 0.1 - 1.2 mg/dL [facility] ([place]) Protein, pl 7.5 6.5 - 8.5 g/dL [facility] ([place]) Albumin 4.0 3.5 - 5.0 g/dL [facility] ([place]) Alk phos 70 40 - 130 Units/L [facility] ([place]) ALT 43 7 - 45 Units/L [facility] ([place]) Comment:Hemolysis present. R esults may be affected. AST 50(H) 10 - 45 Units/L [facility] ([place]) Comment:Hemolysis present. R esults may be affected. Blood 11/27/2024 11:1 6 AM CDT 11/27/2024 11:22 AM CDT us Annel [facility] LAB BLOOD ORDERABLES Final Resu lt [facility] ([place]) [address] [facility] [place] [address] from Last 3 Months Insurance [facility] MEDICA[facility] Advance Directives For more information, please contact: [phone] * Full Code (Latest Code Status on File) Date Activated Date Inactivated Comments 10/22/2019 5:45 AM 10/23/2019 9:20 PM Care Teams Organ Tuner Electronic Relationship Specialty Start Date End Date No, Physician PCP - General 08/20/16
[2025-02-20] MEDS: cefTRIAXone 500 MG, LIDOCAINE 1% LOCAL INJ 1 ML IM (19:43)
[2025-02-21 20:18] LABS: Trichomonas Vag PCR DETECTED (NOT DETECTE)
== END 2025-02-20 20:03 | disposition home or self-care (01) ==
PROVIDERS: Emergency Provider Nurse Practitioner
DX: N89.8 Other specified noninflammatory disorders of vagina (principal); Z11.3 Encounter for screening for infections with a predominantly sexual mode of transmission
CPT/HCPCS: 87491; 87591; 87661; 87798; 96372; 99213; G0463; J0696; J2003